=== PATIENT | female | born 1930 | race Caucasian/White ===

== ENCOUNTER 2016-05-04 07:42 | Day surgery (SDC) | payer MEDICARE, BC ==
[2016-05-04] MEDS ORDERED: Sodium Chloride 0.9% 10 ML Syringe FLUSH PRN (08:30)
[2016-05-04 11:10] VITALS: BP 160/81
--- NOTE | 2016-05-04 14:04 | OR ---
DATE OF PROCEDURE: 05/04/2016 POSTOPERATIVE CARE: Postoperative care will be provided mainly at the [address] [place] [address] [facility] in conjunction with [facility]. PREOPERATIVE DIAGNOSIS: Cataract, left eye. POSTOPERATIVE DIAGNOSIS: Cataract, left eye. PROCEDURE: Phacoemulsification with intraocular lens placement, left eye. ANESTHESIA: Topical and intracameral. ESTIMATED BLOOD LOSS: Minimal. COMPLICATIONS: None. PATHOLOGY SPECIMENS: None. SURGICAL FINDINGS: None. INDICATION FOR PROCEDURE: The patient is an 86-year-old female with history of a visually significant cataract in the left eye, which interfered with activities of daily living. This consisted of a nuclear sclerosis cataract. Following careful discussion of the risks, benefits and alternatives to cataract extraction with intraocular lens placement including blindness and , the patient elected to proceed, and informed, written consent was obtained prior to the procedure. DESCRIPTION OF THE PROCEDURE: The patient was previously identified, and a trisha placed above the left eye. All sources, including the patient, indicated that the left eye was the correct eye. The patient was subsequently taken to the operating room where standard monitors were applied. The patient was then prepped and draped in the usual sterile fashion for ophthalmic surgery. Attention was first directed at the 12 o'clock position where a paracentesis port was fashioned. Shugar solution followed by Viscoat was instilled into the eye. Attention was then directed to the 8:30 position where a triplanar incision was made in a near-clear manner using a keratome. A continuous capsulorrhexis was then made using a combination of the cystotome and Utrata forceps. Hydrodissection was achieved using a balanced salt solution, and the lens rotated nicely. Phacoemulsification was then done using a modified iemejm-sli-wjgrpht technique without complication. Phaco time was 13.08 CDE. The remaining cortex was removed using the irrigation/aspiration handpiece. Provisc was then instilled into the eye. A Technis lens, model [id number], at 21.5 diopters was then placed in the capsular bag using an [place] injector. The remaining viscoelastic was removed using the irrigation/aspiration forceps. All wounds were then checked and found to be watertight. The lid speculum and drapes were removed. Maxitrol ointment was placed in the patient's left eye, and the eye was shielded. The patient tolerated the procedure well. The patient was instructed to follow up tomorrow. All needle and sponge counts were correct at the end of the procedure. Ara Mcdaniel MD /[id number]
== END 2016-05-04 11:10 | disposition home or self-care (01) ==
LOC: JP.SDS 07:42
PROVIDERS: ATTEND Ophthalmology
PROC: 08RK3JZ Replacement of Left Lens with Synthetic Substitute, Percutaneous Approach (ICD-10-PCS; principal; 2016-05-04)
DX: H25.12 Age-related nuclear cataract, left eye (principal)
CPT/HCPCS: 66984; C1780

== ENCOUNTER 2016-06-08 06:57 | Day surgery (SDC) | payer MEDICARE, BC ==
[2016-06-08] MEDS ORDERED: Sodium Chloride 0.9% 10 ML Syringe FLUSH PRN (08:30)
[2016-06-08 11:11] VITALS: BP 174/91
--- NOTE | 2016-06-08 14:34 | OR ---
DATE OF PROCEDURE: 06/08/2016 POSTOPERATIVE CARE: Postoperative care will be provided mainly at the [address] [place] [address] [facility] in conjunction with [facility]. PREOPERATIVE DIAGNOSIS: Cataract, right eye. PREOPERATIVE DIAGNOSIS: Cataract, right eye. PROCEDURE: Phacoemulsification with intraocular lens placement, right eye. ANESTHESIA: Topical and intracameral. ESTIMATED BLOOD LOSS: Minimal. COMPLICATIONS: None. PATHOLOGY SPECIMENS: None. SURGICAL FINDINGS: None. INDICATION FOR PROCEDURE: The patient is an 86-year-old female with history of a visually significant cataract in the right eye, which interfered with activities of daily living. This consisted of a nuclear sclerosis cataract. Following careful discussion of the risks, benefits and alternatives to cataract extraction with intraocular lens placement including blindness and , the patient elected to proceed, and informed, written consent was obtained prior to the procedure. DESCRIPTION OF THE PROCEDURE: The patient was previously identified, and a trisha placed above the right eye. All sources, including the patient, indicated that the right eye was the correct eye. The patient was subsequently taken to the operating room where standard monitors were applied. The patient was then prepped and draped in the usual sterile fashion for ophthalmic surgery. Attention was first directed at the 12 o'clock position where a paracentesis port was fashioned. Shugar solution followed by Viscoat was instilled into the eye. Attention was then directed to the 8:30 position where a triplanar incision was made in a near-clear manner using a keratome. A continuous capsulorrhexis was then made using a combination of the cystotome and Utrata forceps. Hydrodissection was achieved using a balanced salt solution, and the lens rotated nicely. Phacoemulsification was then done using a modified tuudhq-ynh-ipuyreu technique without complication. Phaco time was 19.15 CDE. The remaining cortex was removed using the irrigation/aspiration handpiece. Provisc was then instilled into the eye. A Technis lens, model [id number], at 22.0 diopter lens was then placed in the capsular bag using an [place] injector. The remaining viscoelastic was removed using the irrigation/aspiration forceps. All wounds were then checked and found to be watertight. The lid speculum and drapes were removed. Maxitrol ointment was placed in the patient's right eye, and the eye was shielded. The patient tolerated the procedure well. The patient was instructed to follow up tomorrow. There were no surgical findings. All needle and sponge counts were correct at the end of the procedure. Ara Mcdaniel MD /[id number]
== END 2016-06-08 11:05 | disposition home or self-care (01) ==
LOC: JP.SDS 06:57
PROVIDERS: ATTEND Ophthalmology
DX: H26.9 Unspecified cataract (principal); I10 Essential (primary) hypertension; E03.9 Hypothyroidism, unspecified; E78.5 Hyperlipidemia, unspecified; K21.9 Gastro-esophageal reflux disease without esophagitis; Z88.8 Allergy status to other drugs, medicaments and biological substances
CPT/HCPCS: 66984; C1780; J7050

== ENCOUNTER 2017-02-10 15:48 | Emergency (ER) | payer MEDICARE, BC ==
--- NOTE | 2017-02-10 17:25 | EDM.PDOC ---
ED HPI GENERAL MEDICAL PROBLEM - General Chief Complaint: Respiratory Problem Stated Complaint: COUGH Time Seen by Provider: 02/10/17 16:40 Source of Information: Reports: Patient, Family History Limitations: Reports: No Limitations - History of Present Illness INITIAL COMMENTS - FREE TEXT/NARRATIVE: 86-year-old female with a worsening cough over the past 3 days, today she coughed up a small amount of blood which worried her. She's also had increased shortness of breath with activity. Her pro time was checked 2 weeks ago and was stable, no changes. No significant fevers or chills. Denies any nausea or vomiting. Onset: Gradual (Over the past 3-4 days) Severity: Moderate Associated Symptoms: Reports: Cough, Shortness of Breath. Denies: Fever/Chills , Headaches, Nausea/Vomiting - Related Data Allergies Allergy/AdvReac Type Severity Reaction Status Date / Time vitamin E (d-alpha Allergy Rash Verified 02/10/17 16:09 tocopherol) cortisol Allergy Other Uncoded 02/10/17 16:09 Home Meds: Home Meds Amitriptyline [Elavil] 25 mg PO BEDTIME PRN 04/15/14 [History] Atenolol 50 mg PO QPM 04/15/14 [History] Levothyroxine 75 mcg PO ACBREAKFAST 04/15/14 [History] Montelukast Sodium [Singulair] 10 mg PO QPM 04/15/14 [History] Multivitamin with Minerals [Multiple Vitamin] 1 tab PO DAILY 04/15/14 [History] Omeprazole 40 mg PO DAILY 04/15/14 [History] Methotrexate Sodium [Trexall] 10 mg PO Q7D 05/03/16 [History] Warfarin Sodium [Warfarin Sodium] 2.5 mg PO ASDIRECTED 02/10/17 [History] Past Medical History HEENT History: Reports: Cataract Cardiovascular History: Reports: Hypertension Respiratory History: Reports: Asthma, COPD, SOB, TB Other Respiratory History: pneumonia Gastrointestinal History: Reports: GERD Genitourinary History: Reports: None 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: Musculoskeletal History: Reports: Arthritis, Back Pain, Chronic, Osteoarthritis Other Musculoskeletal History: chronic pain Neurological History: Reports: Migraines Endocrine/Metabolic History: Reports: Hypothyroidism Dermatologic History: Reports: Psoriasis - Infectious Disease History Infectious Disease History: Reports: Chicken Pox - Past Surgical History HEENT Surgical History: Reports: Cataract Surgery Cardiovascular Surgical History: Reports: None GI Surgical History: Reports: Appendectomy, Cholecystectomy, Colonoscopy, EGD Female Surgical History: Reports: D&C, Hysterectomy, Other (See Below) Endocrine Surgical History: Reports: None Musculoskeletal Surgical History: Reports: Knee Replacement Dermatological Surgical History: Reports: None Social & Family History - Tobacco Use Smoking Status *Q: Never Smoker Second Hand Smoke Exposure: Yes - Caffeine Use Caffeine Use: Reports: Coffee - Alcohol Use Days Per Week of Alcohol Use: 0 - Recreational Drug Use Recreational Drug Use: No ED ROS GENERAL - Review of Systems Review Of Systems: See Below Constitutional: Reports: Malaise. Denies: Fever, Chills HEENT: Denies: Throat Pain Respiratory: Reports: Shortness of Breath, Cough, Hemoptysis Cardiovascular: Denies: Chest Pain GI/Abdominal: Denies: Abdominal Pain, Nausea, Vomiting Skin: Reports: No Symptoms Neurological: Denies: Headache ED EXAM, GENERAL - Physical Exam Exam: See Below Exam Limited By: No Limitations General Appearance: Alert, No Apparent Distress Eye Exam: Bilateral Eye: EOMI Respiratory/Chest: No Respiratory Distress, Rales (A few scattered active expiratory rales are heard with slight wheezing, no consolidated rales or rhonchi) Cardiovascular: Irregularly Irregular Neurological: Alert, Oriented Skin Exam: Warm, Dry Course - Vital Signs Last Recorded V/S: Last Vital Signs Temp 98.5 F 02/10/17 16:05 Pulse 51 L 02/10/17 17:35 Resp 18 02/10/17 17:35 BP 133/59 L 02/10/17 17:35 Pulse Ox 95 02/10/17 17:35 - Orders/Labs/Meds Orders: Active Orders 24 hr Category Date Time Status Chest 2V [CR] Routine Exams 02/10/17 16:57 Taken - Re-Assessments/Exams Free Text/Narrative Re-Assessment/Exam: 02/10/17 17:24 Influenza antigens were obtained as well as a two-view chest x-ray. 02/10/17 17:53 two-view chest x-ray was negative, in reviewing the x-ray was also seen she had a chest CT 2 months ago that did not show any tumors or significant abnormalities other than chronic changes. She'll be placed on Zithromax, and given benzonatate Perles for cough suppression and recheck in 7-14 days if the hemoptysis does not improve. Departure - Departure Time of Disposition: 18:36 Disposition: Home, Self-Care 01 Condition: Good Clinical Impression: Bronchitis, Hemoptysis - Discharge Information Instructions: Acute Bronchitis, [id number] Referrals: Naga Durbin MD [Primary Care Provider] - Forms: ED Department Discharge Care Plan Goals: Take antibiotic as prescribed, use cough medications to suppress cough if needed. Return anytime if worsening such as high fever or increased shortness of breath, and consider rechecking in 10-14 days even if improved if you're still coughing blood. - My Orders Last 24 Hours: My Active Orders 02/10/17 16:57 Chest 2V [CR] Routine - Assessment/Plan Last 24 Hours: My Active Orders 02/10/17 16:57 Chest 2V [CR] Routine
[2017-02-10 17:37] VITALS: BP 133/59
--- NOTE | 2017-02-13 09:27 | CR ---
Chest 2V INDICATION: dyspnea COMPARISON: CT 12/20/2016 and chest x-ray 04/15/2014 FINDINGS: Two views. No change in heart size. Large hiatal hernia. Volume loss and scarring in the left lung appears grossly stable. No infiltrates seen on the right. No pleural effusions. IMPRESSION: No acute change.
== END 2017-02-10 18:35 | disposition home or self-care (01) ==
LOC: JP.ED 15:48
DX: J40 Bronchitis, not specified as acute or chronic (principal); R04.2 Hemoptysis; I10 Essential (primary) hypertension; E03.9 Hypothyroidism, unspecified; Z88.8 Allergy status to other drugs, medicaments and biological substances; Z79.01 Long term (current) use of anticoagulants
CPT/HCPCS: 71020; 71020-26; 87804; 99284

== ENCOUNTER 2017-03-15 07:41 | Day surgery (SDC) | payer MEDICARE, BC ==
[2017-03-15] MEDS ORDERED: Dextrose 5%-Lactated Ringers 1,000 ML IV SCH (08:45)
[2017-03-15] MEDS ORDERED: Ampicillin/Sulbactam Na 1.5 GM in Sodium Chloride 0.9% 50 ML IV ONE (09:00)
[2017-03-15] MEDS ORDERED: Propofol 200 MG/20 ML SDV ONE (09:55)
[2017-03-15] MEDS ORDERED: fentaNYL 100 MCG/2 ML SDV ONE (09:55)
[2017-03-15 11:56] VITALS: BP 167/83
--- NOTE | 2017-03-25 13:51 | OR ---
DATE OF PROCEDURE: 03/15/2017 PREOPERATIVE DIAGNOSIS: Large symptomatic hiatal hernia. POSTOPERATIVE DIAGNOSIS: Very large hiatal hernia with active gastroesophageal reflux disease. OPERATIVE PROCEDURE: Esophagogastroduodenoscopy with: 1. Biopsies of the esophagogastric junction for histologic evaluation. 2. Biopsies of antrum for CLOtest. ANESTHESIA: IV sedation. INDICATIONS FOR PROCEDURE: An 86-year-old female presenting with ongoing problems with increasing heartburn. She also has quite a bit in the way of respiratory symptoms which are suspicious for being linked to her reflux. Of note, her brother has had similar long-term problems with reflux and is presently being treated for an advanced adenocarcinoma of the esophagus. The plan is to proceed with upper GI endoscopy with biopsies as indicated. Potential risks including bleeding and perforation were discussed, and the patient wishes to proceed. DETAILS OF THE PROCEDURE: The patient was taken to the operating room and placed in a left lateral decubitus position. IV sedation was administered, after which the upper GI endoscope was passed orally through the length of the esophagus into the stomach with retroflexion view of the fundus; thereafter through the pyloric channel and into the proximal duodenum. Findings included normal hypopharynx, larynx, upper esophageal sphincter. The esophageal body was otherwise unremarkable other than it was fairly shortened per se. The esophagogastric junction was noted to be around 30 cm from the incisors with approximately 1/3 to 1/2 of the stomach just above the diaphragm. There was fairly marked inflammation at the esophagogastric junction with some fibrinous exudate present over that area. 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 No plaquing or other signs of neoplasia were seen. The remainder of the stomach was unremarkable other than some mild patchy redness in the antrum. The pyloric channel and duodenum to the junction of the third and fourth portions were unremarkable. At this point, biopsies were obtained from the antrum and sent for CLOtest for H. pylori. Multiple biopsies were obtained from esophagogastric junction and sent for histologic evaluation. No bleeding from the biopsy sites was seen and the procedure then concluded. Plan will be to see the patient back in the clinic next week. She would appear to be a good candidate for a laparoscopic repair of what is likely a paraesophageal diaphragmatic hernia associated with significant respiratory symptoms and ongoing reflux. At 86, her medical condition remains fairly good, and from the physiologic standpoint would appear to be a reasonable candidate for such a procedure. This was discussed with the patient's son, and we will see the patient back next Sunday to establish a treatment plan. Brody Jones MD /[id number]
== END 2017-03-15 11:45 | disposition home or self-care (01) ==
LOC: JP.SDS 07:41
PROVIDERS: ATTEND Surgery
DX: K29.50 Unspecified chronic gastritis without bleeding (principal); K21.0 Gastro-esophageal reflux disease with esophagitis; K44.9 Diaphragmatic hernia without obstruction or gangrene; I10 Essential (primary) hypertension; Z88.8 Allergy status to other drugs, medicaments and biological substances
CPT/HCPCS: 36415; 85610; 86850; 86900; 86901; 87081; 88305; J0287; J2704; J3010; J7042; J7050

== ENCOUNTER 2017-04-20 09:00 | Inpatient (IN) | payer MEDICARE, BC ==
[2017-04-20] MEDS ORDERED: Bupivacaine 0.5%/EPINEPHrine 1:200,000 50 ML MDV ONE (10:24)
[2017-04-20] MEDS ORDERED: Dextrose 5%-Lactated Ringers 1,000 ML IV SCH (10:30)
[2017-04-20] MEDS ORDERED: Acetaminophen 500 MG Tab PO ONE (10:45)
[2017-04-20] MEDS ORDERED: Albuterol/Ipratropium 3.0-0.5 MG/3 ML Neb Soln NEB ONE (10:45)
[2017-04-20] MEDS ORDERED: Ropivacaine 36 ML, Dexamethasone 8 MG, EPINEPHrine 0.4 MG, Sodium Chloride 0.9% 41.6 ML NERVRT ONE ×4 (12:15)
[2017-04-20] MEDS ORDERED: HYDROmorphone/Normal Saline 15 MG/30 ML PCA IV PRN (12:27)
[2017-04-20] MEDS ORDERED: Naloxone 0.4 MG/ML SDV IVPUSH PRN (12:27)
[2017-04-20] MEDS ORDERED: Succinylcholine 200 MG/10 ML MDV ONE (12:34)
[2017-04-20] MEDS ORDERED: fentaNYL 250 MCG/5 ML SDV ONE ×2 (12:34→14:21)
[2017-04-20] MEDS ORDERED: Ondansetron 4 MG/2 ML SDV ONE (12:34)
[2017-04-20] MEDS ORDERED: Rocuronium 50 MG/5 ML Vial ONE (12:34)
[2017-04-20] MEDS ORDERED: Dexamethasone 4 MG/ML SDV ONE (12:34)
[2017-04-20] MEDS ORDERED: Glycopyrrolate 0.2 MG/ML 5 ML MDV ONE (12:34)
[2017-04-20] MEDS ORDERED: Neostigmine Methylsulfate 1 MG/ML 5 ML Syringe ONE (12:34)
[2017-04-20] MEDS ORDERED: Propofol 200 MG/20 ML SDV ONE (12:34)
[2017-04-20] MEDS: cefOXitin 2 GM in Sodium Chloride 0.9% 50 ML IV ONE ×2 (13:08→18:53)
[2017-04-20] MEDS ORDERED: ePHEDrine 50 MG/ML SDV ONE (13:54)
[2017-04-20] MEDS ORDERED: Amitriptyline 25 MG Tab PO PRN (17:15)
[2017-04-20] MEDS ORDERED: Albuterol/Ipratropium 3.0-0.5 MG/3 ML Neb Soln INH PRN (17:16)
[2017-04-20] MEDS ORDERED: Naloxone 0.4 MG/ML SDV IV PRN (17:17)
[2017-04-20] MEDS ORDERED: Lidocaine 1% with EPINEPHrine 1:100,000 50 ML MDV ONE (17:34)
[2017-04-20] MEDS: cefOXitin 2 GM in Sodium Chloride 0.9% 50 ML IV SCH (18:13)
[2017-04-20] MEDS: Dextrose 5%-Lactated Ringers 1,000 ML IV SCH (18:13)
[2017-04-20] MEDS ORDERED: Lidocaine 1% with EPINEPHrine 1:100,000 50 ML MDV SUBCUT ONE (18:45)
[2017-04-20] MEDS: Acetaminophen 325 MG Tab PO SCH (18:54)
[2017-04-20] MEDS: Albuterol/Ipratropium 3.0-0.5 MG/3 ML Neb Soln INH SCH (20:59)
[2017-04-20] MEDS: Montelukast 10 MG Tab PO SCH (21:01)
[2017-04-21] MEDS: Acetaminophen 325 MG Tab PO SCH ×5 (00:09→23:56)
[2017-04-21] MEDS: cefOXitin 2 GM in Sodium Chloride 0.9% 50 ML IV SCH ×4 (00:09→18:18)
[2017-04-21] MEDS: Dextrose 5%-Lactated Ringers 1,000 ML IV SCH ×3 (01:49→20:24)
[2017-04-21] MEDS ORDERED: Lactated Ringers 500 ML IV ONE (03:15)
[2017-04-21] MEDS ORDERED: Iohexol 647 MG/ML 50 ML SDV PO PRN (05:07)
[2017-04-21] MEDS: Albuterol/Ipratropium 3.0-0.5 MG/3 ML Neb Soln INH SCH ×4 (07:15→20:40)
[2017-04-21] MEDS: Levothyroxine 75 MCG Tab PO SCH (08:21)
[2017-04-21] MEDS: Pantoprazole 40 MG Tab.CR PO SCH (08:22)
[2017-04-21] MEDS ORDERED: Warfarin 5 MG Tab PO ONE (10:00)
[2017-04-21] MEDS: Atenolol 50 MG Tab PO SCH (10:06)
[2017-04-21] MEDS: Enoxaparin 100 MG/1 ML Syringe SUBCUT SCH (10:08)
[2017-04-21] MEDS: Montelukast 10 MG Tab PO SCH (20:40)
[2017-04-22] MEDS: Acetaminophen 325 MG Tab PO SCH ×4 (05:13→23:31)
[2017-04-22] MEDS: Albuterol/Ipratropium 3.0-0.5 MG/3 ML Neb Soln INH SCH ×4 (07:18→20:40)
[2017-04-22] MEDS: Dextrose 5%-Lactated Ringers 1,000 ML IV SCH (07:26)
[2017-04-22] MEDS: Pantoprazole 40 MG Tab.CR PO SCH (07:45)
[2017-04-22] MEDS: Levothyroxine 75 MCG Tab PO SCH (07:45)
[2017-04-22] MEDS ORDERED: Dextrose 5%-Lactated Ringers 1,000 ML IV SCH (08:00)
[2017-04-22] MEDS ORDERED: Magnesium Sulfate/Water 2 GM in Premix Bag 1 BAG IV SCH (09:00)
[2017-04-22] MEDS: Docusate Sodium 100 MG Cap PO SCH ×2 (09:51→20:36)
[2017-04-22] MEDS: Enoxaparin 100 MG/1 ML Syringe SUBCUT SCH (09:51)
[2017-04-22] MEDS: Atenolol 50 MG Tab PO SCH (09:53)
[2017-04-22] MEDS: Potassium Phosphates 3 mMole/ML 15 ML SDV SCH ×2 (09:53→20:36)
[2017-04-22] MEDS ORDERED: HYDROmorphone 2 MG Tab PO PRN (14:17)
[2017-04-22] MEDS: Magnesium Oxide 400 MG Tab PO SCH (20:36)
[2017-04-22] MEDS: Montelukast 10 MG Tab PO SCH (20:37)
[2017-04-23] MEDS: Acetaminophen 325 MG Tab PO SCH ×3 (05:34→17:20)
[2017-04-23] MEDS: Albuterol/Ipratropium 3.0-0.5 MG/3 ML Neb Soln INH SCH ×4 (07:10→21:20)
[2017-04-23] MEDS: Levothyroxine 75 MCG Tab PO SCH (07:58)
[2017-04-23] MEDS: Pantoprazole 40 MG Tab.CR PO SCH (07:58)
--- NOTE | 2017-04-23 08:55 | CR ---
UGI wo KUB HISTORY: Previous large hiatal hernia COMPARISON: CT scan 12/20/2016. FINDINGS: Postoperative change. The stomach is now below the hemidiaphragm there was a very large hil a hernia involving the majority of the stomach on prior CT scan. No extravasation of contrast. No obs truction seen.
--- NOTE | 2017-04-23 09:10 | PN ---
DATE OF SERVICE: 04/21/2017 The patient has been afebrile with stable vital signs. Overnight, no major problems have been noted. She did have a skin bleed, which was sutured at the bedside yesterday afternoon, but has not had any further problem in that regard. The upper GI x-ray looks good, and we will begin a full-liquid diet today, clamping the tube for 5 hours and unclamping it for 1 hour [id number], and restart the Lovenox and Coumadin today. Brody Jones MD /[id number]
[2017-04-23] MEDS: Enoxaparin 100 MG/1 ML Syringe SUBCUT SCH (09:36)
[2017-04-23] MEDS: Magnesium Oxide 400 MG Tab PO SCH ×2 (09:37→21:22)
[2017-04-23] MEDS: Atenolol 50 MG Tab PO SCH (09:37)
[2017-04-23] MEDS: Docusate Sodium 100 MG Cap PO SCH ×2 (09:38→21:21)
--- NOTE | 2017-04-23 09:40 | PCM.SN ---
- Free Text/Narrative Note: Felipe Treviño is an 87yo F POD3 s/p diaphragmatic hernia repair and gastrostomy tube placement who is doing quite well. Upright abdominal x-ray confirms adequate resolution of diaphragmatic hernia. Patient has remained afebrile. Patient did not sleep well last night and states she occasionally takes amytryptilline at home. She had a dose of that last night as well as Tylenol, and slept better afterward. She is wondering if she can have both amytryptilline and Tylenol tonight as well. Physical exam: Lungs clear to auscultation bilaterally. Regular heart rate and rhythm without appreciable murmurs. Patient alert and oriented and doing generally well. Pain: managed well with Tylenol, though she states she still has left-sided abdominal pain (near gastrostomy incision), and that it interferes with her sleep because she usually sleeps on her left side. Respiratory: using incentive spirometry. Encouraged to ambulate as able. : Domingo still in place. Discuss pulling it tomorrow. GI: Diarrhea today. Patient states "I don't think there's anything left in me." Diet: Transition from full liquid to low residue. G-tube: minimal output. Keep clamped. Lines: No IV access. IV infiltrated yesterday and as there is no necessity for it, it was not replaced. Miesha Matos, MS3
--- NOTE | 2017-04-23 10:40 | PN ---
DATE OF SERVICE: 04/22/2017 The patient has been afebrile with stable vital signs. No major problems were noted overnight. Oral intake was fairly good around 1400 mL with minimal residual output. Pro- time is at , and we will give her 2 mg of Coumadin today. Magnesium and phosphate are somewhat low. We gave her some IV magnesium. I think, to avoid large volume of fluid, we will give her the K-Phos liquid via the G-tube today and recheck some labs tomorrow. We will leave her on the RESIDENTIAL INSURANCE INSPECTOR for today and add some stool softener and most likely switch over to oral pain medicine tomorrow. Brody Jones MD /[id number]
[2017-04-23] MEDS ORDERED: Warfarin 2.5 MG Tab PO ONE (13:00)
[2017-04-23] MEDS ORDERED: Amitriptyline 25 MG Tab PO SCH (21:00)
[2017-04-23] MEDS: Montelukast 10 MG Tab PO SCH (21:22)
[2017-04-23] MEDS: Amitriptyline 25 MG Tab PO SCH (21:22)
[2017-04-24] MEDS: Acetaminophen 325 MG Tab PO SCH ×5 (00:56→23:29)
[2017-04-24] MEDS: Albuterol/Ipratropium 3.0-0.5 MG/3 ML Neb Soln INH SCH ×4 (07:43→20:31)
[2017-04-24] MEDS: Pantoprazole 40 MG Tab.CR PO SCH (07:50)
[2017-04-24] MEDS: Levothyroxine 75 MCG Tab PO SCH (07:50)
--- NOTE | 2017-04-24 08:44 | PN ---
DATE OF SERVICE: 04/24/2017 SUBJECTIVE: Felipe states that she has been sitting up in the chair, having bowel movements frequently. She has had 6 reported during the night and 2 yesterday. She is not ready to go home with the frequency of bowel movement. Vital signs otherwise have been stable, afebrile. REVIEW OF SYSTEMS: Remainder of review of systems negative for any pertinent positives and negatives. OBJECTIVE: GENERAL: Felipe Treviño is an 87-year-old female. She is alert and orientated, sitting in the chair next to the bathroom. A C. difficile stool sample has been collected, results are not back yet. VITAL SIGNS: TPR is 96.7, 58, 16. Blood pressure 140/63. HEENT: Negative. NECK: Supple. HEART: Regular rate and rhythm. LUNGS: Clear. ABDOMEN: Dressings dry and intact. Abdominal binder is on. EXTREMITIES: Without peripheral edema. LABORATORY DATA: INR was 2.41 this morning. She received 1.25 mg of Coumadin yesterday with her Lovenox. ASSESSMENT: Diagnostic laparoscopy with repair of diaphragmatic hernia with mesh and excision of mediastinal lipoma and placement of tube gastrostomy for paraesophageal diaphragmatic hernia and mediastinal lipoma. Date of surgery, 04/20/2017. PLAN: 1. Await for results of C. diff. 2. To call results. 3. Probiotics, take 2 b.i.d. 4. Discontinue Colace. 5. Give Coumadin 1 mg p.o. today, Lovenox discontinued. 6. Home Care will be set up when the patient is discharged. 7. We will evaluate p.r.n. or in the a.m. Kimberley De Leon PA-C /[id number]
[2017-04-24] MEDS: Lactobacillus Rhamnosus GG (Probiotic) Cap PO SCH ×2 (08:51→20:15)
[2017-04-24] MEDS: Atenolol 50 MG Tab PO SCH (08:51)
[2017-04-24] MEDS: Magnesium Oxide 400 MG Tab PO SCH ×2 (08:51→20:15)
[2017-04-24] MEDS: Montelukast 10 MG Tab PO SCH (20:15)
[2017-04-24] MEDS: Amitriptyline 25 MG Tab PO SCH (20:15)
[2017-04-24] MEDS ORDERED: Aluminum Hydroxide/Magnesium Hydroxide/Simethicone Susp 30 ML Cup PO PRN (20:20)
[2017-04-25] MEDS: Loperamide 2 MG Cap PO PRN ×3 (00:09→07:40)
[2017-04-25] MEDS: Acetaminophen 325 MG Tab PO SCH (06:10)
[2017-04-25 07:28] VITALS: BP 103/68
[2017-04-25] MEDS: Albuterol/Ipratropium 3.0-0.5 MG/3 ML Neb Soln INH SCH (07:38)
[2017-04-25] MEDS: Pantoprazole 40 MG Tab.CR PO SCH (07:40)
[2017-04-25] MEDS: Levothyroxine 75 MCG Tab PO SCH (07:40)
[2017-04-25] MEDS: Magnesium Oxide 400 MG Tab PO SCH (08:31)
[2017-04-25] MEDS: Atenolol 50 MG Tab PO SCH (08:31)
[2017-04-25] MEDS: Lactobacillus Rhamnosus GG (Probiotic) Cap PO SCH (08:31)
--- NOTE | 2017-04-25 09:10 | DISCH ---
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 DISCHARGE DIAGNOSES: Diagnostic laparoscopy with repair of diaphragmatic hernia with mesh and excision of mediastinal lipoma and placement of tube gastrostomy for paraesophageal diaphragmatic hernia and mediastinal lipoma. Date of surgery, 04/20/2017. HISTORY: Felipe is an 87-year-old female with longstanding history of symptomatic diaphragmatic hernia. After preoperative evaluation and discussion of possible risks and possible complications, she wished to proceed with surgical procedure. HOSPITAL COURSE: Felipe had her surgery on 04/20/2017. She was started on a clear liquid diet and gradually advanced to full liquid diet. Her anticoagulation medications were monitored. She started having bowel movements. Vital signs were stable. She received adequate dietary education and she was able to be discharged to home on 04/25/2017. PHYSICAL EXAMINATION: GENERAL: Felipe Treviño is an 87-year-old female. VITAL SIGNS: Height is 5 feet 4 inches. Weight is 162 pounds. TPR 97.3, 76, 16. Blood pressure is 103/68. HEENT: Negative. NECK: Supple. HEART: Regular rate and rhythm. LUNGS: Clear. ABDOMEN: Sutures in place, 4x4s over JUWAN drain. Gastrostomy tube in place and it is clamped. FOLLOWUP APPOINTMENT: With Kimberley De Leon PA-C at [facility], 05/03/2017, at 10:00 a.m. DISCHARGE MEDICATIONS: 1. Tylenol 650 mg oral q.6 hours p.r.n. pain, #100. 2. Culturelle probiotics 2 caps twice daily, #120. 3. Imodium 2 mg 1-2 q.6 hours p.r.n. diarrhea. She is to resume her home medications: 1. ProAir two puffs inhaled every 4 hours. 2. DuoNeb as directed. 3. Elavil 25 mg at bedtime p.r.n. sleep. 4. Atenolol 50 mg oral every evening. 5. Levothyroxine 75 mcg oral daily. 6. Trexall 10 mg oral every 7 days. 7. Singulair 10 mg oral every evening. 8. Omeprazole 40 mg daily. 9. Coumadin 2.5 every Sunday, Sunday, Sunday, Sunday, Sunday, and take a half a tablet on and Sunday. DIET: Full liquid diet for 2 weeks. Drink 8 to 10 glasses of water. ACTIVITY: No lifting greater than 10 pounds for 2 weeks; do not drive for 2 weeks; shower bathing, may shower. Notify provider if any fever, increased pain, nausea, or vomiting. Keep site clean and dry. Wear abdominal binder for 2 weeks and as tolerated. Keep gastrostomy tube clamped and unclamped for 10 minutes. If you are feeling nauseated or bloating, then reclamp. Use incentive spirometer 10 times every hour while awake for 1 week.
--- NOTE | 2017-04-27 09:13 | OR ---
DATE OF PROCEDURE: 04/20/2017 PREOPERATIVE DIAGNOSIS: Giant paraesophageal diaphragmatic hernia. POSTOPERATIVE DIAGNOSES: 1. Giant paraesophageal diaphragmatic hernia. 2. Mediastinal lipoma. OPERATIVE PROCEDURE: Diagnostic laparoscopy with: 1. Repair of giant paraesophageal diaphragmatic hernia with mesh (26914). 2. Excision of mediastinal lipoma (25848). 3. Placement of tube gastrostomy (10669). ANESTHESIA: General. ASSISTANTS: Kimberley De Leon PA-C and Miesha Matos MS3. INDICATION FOR PROCEDURE: This is an 87-year-old presenting with an increasingly symptomatic large paraesophageal diaphragmatic hernia. After preoperative evaluation and discussion, she wished to proceed with a repair of this using a laparoscopic approach. She is aware of potential need for open approach. Otherwise, potential risks including bleeding, infection, leaks from various GI tract closures, possible recurrence of the problem, worsening reflux, and such were all reviewed, and the patient wishes to proceed. She is aware that we will plan to place a gastrostomy tube, which will need to stay in for around 5 weeks to help fix the stomach in position intra-abdominally as well. DETAILS OF PROCEDURE: The patient was taken to the operating room, and after general endotracheal anesthetic was induced, initially a nasogastric tube was placed to decompress the stomach. Domingo catheter was placed and the patient positioned in lithotomy position. The abdomen was then prepped and draped. At 15 cm inferior, 5 cm left of xiphoid process, a transverse incision was made and peritoneal cavity entered under direct vision with Optiview trocar and inflated to 15 mmHg pressure of CO2. Laparoscope was then reinserted. No underlying trocar insertion site injuries were seen. Following this, laparoscope was reinserted. Bilateral subcostal transversus abdominis plane blocks were then placed with direct visualization of the needle tip in the transversus abdominis plane and injection of standard solution placed bilaterally. Following this, 5 additional trocars were placed across the upper mid abdomen, and general exploration was undertaken. With elevation of liver, as expected, the patient was noted to have a large paraesophageal diaphragmatic hernia. This contained some omentum. A large portion of the hernia was occupied by the stomach as well, and the tip of the spleen likewise was upward into the edge of the hernia on non-sloped aspect. At this point, the stomach was gradually retracted down. Dissection began along the edge of the crural defect, beginning on the right side, then curving anteriorly, and then down towards the left. This allowed entrance into the mediastinum. Eventually, the area behind the esophagus was encircled as well. During the course of this, a large mediastinal lipoma was encountered, which was removed in a piecemeal manner during the course of the dissection. Once the esophagus was reduced into the intraabdominal location, the crural repair was accomplished posteriorly with a series of 0 Ethibond sutures reinforced with PTFE pledgets. The crural repair was then reinforced with some Phasix ST mesh cut such that it would lie over the crural repair and then up along the diaphragm on each side adjacent to the esophagus. This was affixed with some titanium tacking screws. At this point, the fundus was away from the greater omentum beginning in the upper aspect of the fundus with Harmonic scalpel. This dissection then continued upward to include the short gastric vessels including the highest and posterior short gastric vessels. The fundus at this point was very mobile, given the fact that for some time it had been up into the chest and was retrieved through the retroesophageal window. Only a partial fundoplication was placed at this time to avoid dysphagia associated with large amount of edema located in the area. This was affixed to the right side of the esophagus and the overlying diaphragm with some 0 Ethibond sutures reinforced with PTFE pledgets. This partial fundoplication was then felt to be satisfactory. Through the left mid subcostal trocar site then, the trocar was removed and an 18-Croatian Domingo catheter placed through that defect. A pursestring stitch of 2-0 Vicryl stitch was then placed on the greater curvature side of the stomach right at the point where it would come up into the gastrostomy site satisfactorily. A gastrotomy was then placed and the tube was then positioned in the gastric lumen and inflated to 15 mL. The pursestring suture was then pulled up snugly and tied. The gastrostomy tube was then pulled up against the abdominal wall, remaining within the stomach, and that suture then used to initially affix to the stomach as well. Three additional sutures between the anterior abdominal wall and adjacent stomach were then placed with the 2-0 Vicryl stitch, and the tube was then secured at the skin level with a 2-0 nylon stitch. At that point, no further problems were noted. A 10-Croatian round Thomas-Pena drain was placed through the left lateral trocar site and positioned up into the mediastinum to provide drainage into that area, and following that, the trocars were sequentially removed. The fascia at the 12 mm sites was closed with 0 Vicryl stitch and the skin with 4-0 Vicryl skin stitch, which was also used to affix the drain. The patient was taken to the recovery room in satisfactory condition. Physician entry level assistant manager, Kimberley De Leon, played an essential role in assisting in this case, helping to position the patient, retract structures as needed as well as suturing and cutting sutures when indicated. Her presence improved patient safety and decreased operative time. Brody Jones MD /[id number]
== END 2017-04-25 10:40 | disposition home health service (06) | DRG 328 ==
LOC: EDSTATUS 09:00 → JP.SDS 10:11 → JP.MS 10:11 → JP.2SS 16:30
PROVIDERS: ADMIT Surgery; ATTEND Surgery
PROC: 0BUT4JZ Supplement Diaphragm with Synthetic Substitute, Percutaneous Endoscopic Approach (ICD-10-PCS; principal; 2017-04-20)
PROC: 0WBC4ZX Excision of Mediastinum, Percutaneous Endoscopic Approach, Diagnostic (ICD-10-PCS; 2017-04-20)
PROC: 0DV44ZZ Restriction of Esophagogastric Junction, Percutaneous Endoscopic Approach (ICD-10-PCS; 2017-04-20)
PROC: 3E0T3BZ Introduction of Anesthetic Agent into Peripheral Nerves and Plexi, Percutaneous Approach (ICD-10-PCS; 2017-04-20)
PROC: 0DH64UZ Insertion of Feeding Device into Stomach, Percutaneous Endoscopic Approach (ICD-10-PCS; 2017-04-20)
DX: K44.0 Diaphragmatic hernia with obstruction, without gangrene (principal); K22.70 Barrett's esophagus without dysplasia; I11.9 Hypertensive heart disease without heart failure; E78.5 Hyperlipidemia, unspecified; D17.4 Benign lipomatous neoplasm of intrathoracic organs; K21.9 Gastro-esophageal reflux disease without esophagitis; R19.7 Diarrhea, unspecified; Z86.718 Personal history of other venous thrombosis and embolism; E03.9 Hypothyroidism, unspecified; M19.90 Unspecified osteoarthritis, unspecified site; M81.0 Age-related osteoporosis without current pathological fracture; Z85.41 Personal history of malignant neoplasm of cervix uteri; Z86.11 Personal history of tuberculosis; Z79.01 Long term (current) use of anticoagulants; Z88.8 Allergy status to other drugs, medicaments and biological substances
CPT/HCPCS: 36415; 74240; 74240-26; 80048; 80053; 83735; 83880; 84100; 85027; 85610; 86850; 86900; 86901; 87493; 88302; 94640; 94762; A9270-GY; C1781; J0171; J0330; J0694; J1100; J1170; J1650; J2405; J2704; J2710; J2795; J3010; J3475; J3490; J7042; J7050; J7620; Q9967

== ENCOUNTER 2017-05-10 18:02 | Emergency (ER) | payer MEDICARE, BC ==
[2017-05-10 18:26] VITALS: BP 142/67
[2017-05-10] MEDS ORDERED: Lidocaine 2% Viscous Solution 15 ML Cup PO ONE (19:09)
--- NOTE | 2017-05-10 19:09 | EDM.PDOC ---
ED HPI GENERAL MEDICAL PROBLEM - General Chief Complaint: Abdominal Pain Stated Complaint: STOMACH PAIN Time Seen by Provider: 05/10/17 18:45 Source of Information: Reports: Patient, Family History Limitations: Reports: No Limitations - History of Present Illness INITIAL COMMENTS - FREE TEXT/NARRATIVE: 87-year-old female with a postoperative gastric tube that is bothering her. It is not being used, it is taking the place of an NG tube if necessary for treatment of ileus or bowel obstruction. However her bowels are working fine, she is afebrile, she is eating and her bowels are moving. She is not complaining of any bowel distention, she is just getting tired of the discomfort from the gastric tube. Onset: Unknown/Unsure Duration: Week(s): (Tube has been bothering her since her surgery 3 weeks ago) Location: Reports: Abdomen Severity: Mild Abdomen Pain Score (Numeric/FACES): 7 - Related Data Allergies Allergy/AdvReac Type Severity Reaction Status Date / Time vitamin E (d-alpha Allergy Rash Verified 05/10/17 18:31 tocopherol) cortisol Allergy Other Uncoded 05/10/17 18:31 Home Meds: Home Meds Amitriptyline [Elavil] 25 mg PO BEDTIME PRN 04/15/14 [History] Atenolol 50 mg PO QPM 04/15/14 [History] Levothyroxine 75 mcg PO ACBREAKFAST 04/15/14 [History] Montelukast Sodium [Singulair] 10 mg PO QPM 04/15/14 [History] Methotrexate Sodium [Trexall] 10 mg PO Q7D 05/03/16 [History] Warfarin Sodium 2.5 mg PO SUMOTUWESA 02/10/17 [History] Warfarin [Coumadin] 1.25 mg PO THFR 03/14/17 [History] Acetaminophen [Tylenol] 650 mg PO Q6H PRN #100 tablet 04/25/17 [Rx] Loperamide [Imodium] 2 - 4 mg PO Q6H PRN #30 cap 04/25/17 [Rx] Past Medical History HEENT History: Reports: Cataract, Impaired Vision Other HEENT History: glasses Cardiovascular History: Reports: Blood Clots/VTE/DVT, High Cholesterol, Hypertension, SOB on Exertion Respiratory History: Reports: Asthma, COPD, SOB, TB Other Respiratory History: pneumonia Gastrointestinal History: Reports: GERD, Hiatal Hernia, Other (See Below) Other Gastrointestinal History: Barretts Genitourinary History: Reports: None 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: Musculoskeletal History: Reports: Arthritis, Back Pain, Chronic, Osteoarthritis , Osteoporosis Other Musculoskeletal History: chronic pain Neurological History: Reports: Migraines Endocrine/Metabolic History: Reports: Hypothyroidism Hematologic History: Reports: Anticoagulation Therapy, Folic Acid Oncologic (Cancer) History: Reports: Cervix Dermatologic History: Reports: Psoriasis, Other (See Below) Other Dermatologic History: Rosacea - Infectious Disease History Infectious Disease History: Reports: Chicken Pox, Measles, TB - Past Surgical History Head Surgeries/Procedures: Reports: None HEENT Surgical History: Reports: Cataract Surgery, Other (See Below) Other HEENT Surgeries/Procedures: wisdom tooth extraction 03-12-17 Cardiovascular Surgical History: Reports: None Respiratory Surgical History: Reports: Lung Resection GI Surgical History: Reports: Appendectomy, Cholecystectomy, Colonoscopy, EGD, Hernia Repair/Other, Lysis of Adhesions, Small Bowel Female Surgical History: Reports: D&C, Hysterectomy, Other (See Below) Other Female Surgeries/Procedures: bladder repair x2 Endocrine Surgical History: Reports: None Neurological Surgical History: Reports: None Musculoskeletal Surgical History: Reports: Knee Replacement Oncologic Surgical History: Reports: None Dermatological Surgical History: Reports: None Social & Family History - Family History Family Medical History: Noncontributory Cardiac: Reports: Heart Failure Neurological: Reports: CVA Oncologic: Reports: Liver - Tobacco Use Smoking Status *Q: Never Smoker Second Hand Smoke Exposure: No - Caffeine Use Caffeine Use: Reports: Coffee - Alcohol Use Days Per Week of Alcohol Use: 0 - Recreational Drug Use Recreational Drug Use: No ED ROS GENERAL - Review of Systems Review Of Systems: See Below Constitutional: Denies: Fever, Chills Respiratory: Denies: Shortness of Breath Cardiovascular: Denies: Chest Pain GI/Abdominal: Reports: Abdominal Pain. Denies: Nausea, Vomiting : Reports: No Symptoms Neurological: Reports: No Symptoms ED EXAM, GI/ABD - Physical Exam Exam: See Below Exam Limited By: No Limitations General Appearance: Alert, No Apparent Distress Eyes: Bilateral: Normal Appearance Respiratory/Chest: No Respiratory Distress, Lungs Clear GI/Abdominal Exam: Normal Bowel Sounds, Soft, Tender (She does react with tenderness to palpation across the upper abdomen, especially around the tube) Course - Vital Signs Last Recorded V/S: Last Vital Signs Temp 96.5 F 05/10/17 18:28 Pulse 65 05/10/17 18:28 Resp 18 05/10/17 18:28 BP 142/67 H 05/10/17 18:28 Pulse Ox 94 L 05/10/17 18:28 - Orders/Labs/Meds Meds: Medications Discontinued Medications Generic Name Dose Route Start Last Admin Trade Name Mercedes PRN Reason Stop Dose Admin Lidocaine HCl 15 ml 05/10/17 19:09 05/10/17 19:16 Xylocaine 2% Viscous PO 05/10/17 19:10 15 ml ONETIME ONE Administration - Re-Assessments/Exams Free Text/Narrative Re-Assessment/Exam: 05/10/17 19:06 The dressings were removed and there was a small amount of purulent material near the entrance of the tube but no significant inflammation. I discussed this with Kimberley De Leon, all the symptoms the patient is having and the physical presentation is to be expected. A small amount of topical viscous lidocaine was placed around the tube and it was redressed, she was given 6 hydrocodone to take one every 3-4 hours overnight and will see surgery tomorrow for recheck. Departure - Departure Time of Disposition: 19:44 Disposition: Home, Self-Care 01 Condition: Good Clinical Impression: Abdominal pain Qualifiers: Abdominal location: left upper quadrant Qualified Code(s): R10.12 - Left upper quadrant pain - Discharge Information Instructions: Abdominal Pain, Adult, [id number] Referrals: Naga Durbin MD [Primary Care Provider] - Forms: ED Department Discharge Care Plan Goals: Continue regular diet as before, use pain medication as directed and continue your other normal medications. Recheck with Kimberley De Leon tomorrow, or return sooner if worsening or concerns.
== END 2017-05-10 19:30 | disposition home or self-care (01) ==
LOC: JP.ED 18:02
DX: R10.12 Left upper quadrant pain (principal); E78.00 Pure hypercholesterolemia, unspecified; I10 Essential (primary) hypertension; J44.9 Chronic obstructive pulmonary disease, unspecified; E03.9 Hypothyroidism, unspecified; Z93.1 Gastrostomy status; Z88.8 Allergy status to other drugs, medicaments and biological substances; Z79.899 Other long term (current) drug therapy; Z87.01 Personal history of pneumonia (recurrent); Z79.01 Long term (current) use of anticoagulants; Z90.710 Acquired absence of both cervix and uterus
CPT/HCPCS: 99284; A9270